=== PATIENT | male | born 1980 | race Caucasian/White ===

== ENCOUNTER 2018-12-02 09:34 | Emergency (ER) | payer SELFPAY ==
[~2018-12-02] VITALS: Ht 175.3 cm; Wt 77.1 kg
--- NOTE | 2018-12-02 09:55 | NUR ---
ANXIETY WORSENING X 2 MONTHS, PATIENT PLACED IN BED, CHANGED INTO A GOWN, BREATHING EVEN AND UNLABORED, NO SOB NOTED. PLACED ON THE MONITOR. WILL CONTINUE TO MONITOR.
[2018-12-02] MEDS ORDERED: ALPRAZOLAM 0.5 MG TABLET ONE (10:16)
[2018-12-02] MEDS ORDERED: ALPRAZOLAM 0.5 MG TABLET PO ONE (10:30)
--- NOTE | 2018-12-02 11:16 | NUR ---
RX PROVIDED, Patient discharged to home in stable condition. Written and verbal after care instructions given. Patient verbalizes understanding of instruction.
[2018-12-02 11:17] VITALS: BP 125/80
== END 2018-12-02 11:17 | disposition home or self-care (01) ==
LOC: ER 09:34
DX: F41.9 Anxiety disorder, unspecified (principal); F45.8 Other somatoform disorders; F17.200 Nicotine dependence, unspecified, uncomplicated
CPT/HCPCS: 71045-TC